=== PATIENT | female | born 1960 | race Caucasian/White ===

== ENCOUNTER 2016-03-12 17:54 | Emergency (ER) | payer MEDICAID ==
[~2016-03-12] VITALS: Ht 149.9 cm; Wt 68.0 kg
[2016-03-12 18:36] VITALS: BP 117/84
[2016-03-12] MEDS ORDERED: diphenhdrAMINE HCL 50 MG/1 ML VL IM ONE (19:00)
[2016-03-12] MEDS ORDERED: EPINEPHrine HCL 1 MG/1 ML AMP SC ONE (19:00)
== END 2016-03-12 20:05 | disposition home or self-care (01) ==
LOC: ER 18:07
DX: T78.40XA Allergy, unspecified, initial encounter (principal); H66.91 Otitis media, unspecified, right ear; I10 Essential (primary) hypertension; F17.210 Nicotine dependence, cigarettes, uncomplicated; Z88.1 Allergy status to other antibiotic agents
CPT/HCPCS: 96372; 99284; J0171; J1200

== ENCOUNTER 2016-05-15 08:38 | Emergency (ER) | payer MEDICAID ==
[~2016-05-15] VITALS: Ht 149.9 cm; Wt 70.3 kg
[2016-05-15 08:52] VITALS: BP 120/72
== END 2016-05-15 11:36 | disposition home or self-care (01) ==
LOC: ER 08:40
DX: J20.9 Acute bronchitis, unspecified (principal); F17.210 Nicotine dependence, cigarettes, uncomplicated
CPT/HCPCS: 71020

== ENCOUNTER 2016-06-08 20:00 | Emergency (ER) | payer MEDICAID ==
[~2016-06-08] VITALS: Ht 149.9 cm; Wt 70.3 kg
[2016-06-08 23:26] VITALS: BP 126/69
[2016-06-09] MEDS ORDERED: ALBUTEROL SULF 2.5 MG/0.5ML(0.5%) NEB SOLN NEB ONE (00:45)
[2016-06-09] MEDS ORDERED: IPRATROPIUM BROM 0.5 MG/2.5ML INH SOL NEB ONE (00:45)
[2016-06-09] MEDS ORDERED: methylPREDNISolone SOD SUCC 125 MG/2 ML VL IM ONE (00:45)
== END 2016-06-09 01:01 | disposition home or self-care (01) ==
LOC: ER 20:08
DX: J42 Unspecified chronic bronchitis (principal); I10 Essential (primary) hypertension; F17.210 Nicotine dependence, cigarettes, uncomplicated
CPT/HCPCS: 71010; 94640; 96372; 99283; J2930

== ENCOUNTER 2018-03-02 16:10 | Emergency (ER) | payer MEDICAID ==
[~2018-03-02] VITALS: Ht 149.9 cm; Wt 69.4 kg
[2018-03-02 16:41] VITALS: BP 138/81
[2018-03-02] MEDS ORDERED: cefTRIAXone SOD 1,000 MG VL IM ONE (18:45)
[2018-03-02] MEDS ORDERED: methylPREDNISolone SOD SUCC 125 MG/2 ML VL IM ONE (18:45)
[2018-03-02] MEDS ORDERED: ALBUTEROL SULF 2.5 MG/0.5ML(0.5%) NEB SOLN NEB ONE (19:00)
[2018-03-02] MEDS ORDERED: IPRATROPIUM BROM 0.5 MG/2.5ML INH SOL NEB ONE (19:00)
== END 2018-03-02 19:45 | disposition home or self-care (01) ==
LOC: ER 16:14
DX: J42 Unspecified chronic bronchitis (principal); I10 Essential (primary) hypertension; F17.210 Nicotine dependence, cigarettes, uncomplicated
CPT/HCPCS: 94640; 96372; 99283; J0696; J2930; J7611; J7644

== ENCOUNTER 2018-05-01 11:52 | Emergency (ER) | payer MEDICAID ==
[~2018-05-01] VITALS: Ht 149.9 cm; Wt 52.2 kg
[2018-05-01 12:23] VITALS: BP 147/93
== END 2018-05-01 14:27 | disposition home or self-care (01) ==
LOC: ER 11:54
DX: I10 Essential (primary) hypertension (principal); F17.210 Nicotine dependence, cigarettes, uncomplicated; Z88.5 Allergy status to narcotic agent; Z88.1 Allergy status to other antibiotic agents; Z76.0 Encounter for issue of repeat prescription

== ENCOUNTER 2019-04-15 08:23 | Inpatient (IN) | payer MEDICAID ==
[~2019-04-15] VITALS: Ht 149.9 cm; Wt 73.4 kg
[2019-04-15] MEDS ORDERED: SODIUM CHLORIDE 0.9% 1,000 ML IV ONE (08:46)
[2019-04-15] MEDS ORDERED: SODIUM CHLORIDE 0.9% 500 ML IVB ONE (08:46)
[2019-04-15] MEDS ORDERED: PROMETHAZINE HCL 25 MG/ML 1ML IV PRN (09:15)
[2019-04-15] MEDS ORDERED: HYDROmorphone HCL 2 MG/ML VL IV ONE (09:15)
[2019-04-15 09:25] LABS: Basophils # (auto) 0.1 uL; Basophils % (auto) 0.3 % (0.0-2.0); Eosinophils # (auto) 0 uL; Eosinophils % (auto) 0.2 % (0.0-7.0); Hematocrit 46.9 % (36.0-46.0); Hemoglobin 16.2 g/dL (12.2-16.2); Lymphocytes # (auto) 2.2 uL; Lymphocytes % (auto) 10.8 % (10.0-50.0); Mean Corpuscular Hemoglobin 30.8 pg (28.0-32.0); Mean Corpuscular Hgb Conc. 34.5 g/dL (32.0-36.0); Mean Corpuscular Volume 89.3 fL (80.0-100.0); Monocytes # (auto) 0.8 uL; Monocytes % (auto) 3.9 % (0.0-12.0); Neutrophils # (auto) 17.4 uL; Neutrophils % (auto) 84.8 % (37.0-80.0); Nucleated Red Blood Cells % 0.2 %; Platelet Count (auto) 331 10^3/uL (140-450); Red Blood Cells 5.25 10^6/uL (4.0-5.20); Red Cell Distribution Width 13.3 % (11.8-14.3); White Blood Cell 20.5 10^3/uL (4.4-10.8)
[2019-04-15 09:36] LABS: Albumin 3.8 g/dL (3.4-5.0); Potassium 3.1 mmol/L (3.5-5.1)
[2019-04-15 09:39] LABS: Bilirubin, Total 0.8 mg/dL (0.2-1.0); Total Protein 7.5 g/dL (6.4-8.2)
[2019-04-15 10:12] LABS: Magnesium 2.2 mg/dL (1.6-2.6)
[2019-04-15] MEDS ORDERED: POTASSIUM EFFERVESENT TAB 25 MEQ PO ONE (11:00)
[2019-04-15 12:15] LABS: Urine Bacteria MOD /hpf (None Seen); Urine Blood Negative /uL (Negative); Urine Mucus FEW (None Seen); Urine Specific Gravity 1.028 (1.001-1.035); Urine WBC 4 /hpf (0 - 5)
[2019-04-15] MEDS ORDERED: cefTRIAXone 1GM/50ML D5W 50 ML IV ONE ×2 (12:30→13:30)
[2019-04-15] MEDS: SODIUM CHLORIDE 0.9% 1,000 ML IV SCH ×2 (13:20→23:20)
[2019-04-15] MEDS ORDERED: traMADol HCL 50 MG TAB PO PRN (13:30)
[2019-04-15] MEDS ORDERED: MORPHINE SULF INJ 2 MG/ML SYRINGE 1ML IV PRN (13:30)
[2019-04-15] MEDS ORDERED: ALBUTEROL SULF 2.5 MG/0.5ML(0.5%) NEB SOLN NEB PRN (13:30)
[2019-04-15] MEDS ORDERED: DEXTROSE (50%) 50ML SYRG IV PRN (13:30)
[2019-04-15] MEDS ORDERED: ACETAMINOPHEN 500 MG TAB PO PRN (13:30)
[2019-04-15] MEDS: PROMETHAZINE HCL 25 MG/ML 1ML IV PRN ×2 (13:47→20:05)
[2019-04-15 13:58] VITALS: BP 110/86
[2019-04-15] MEDS: metroNIDAZOLE 500MG/100ML 100 ML IV SCH ×2 (14:01→21:32)
[2019-04-15 14:04] LABS: CRP High Sensitivity 0.33 mg/dL (< 0.3)
[2019-04-15] MEDS ORDERED: IOHEXOL 300 MG/ML 100ML BOTTLE IJ ONE (14:24)
--- NOTE | 2019-04-15 15:40 | NUR ---
MS admit from ER GEORGE NEWBY admitted to tele/MS after SBAR received. Patient oriented to AVINASH PAULA, RN primary RN, unit, room, bed, and unit policies regarding patient care and visiting hours. Patient weighed by bedscale and encouraged to call if they need something. All questions and concerns addressed, patient verbalized understanding.
[2019-04-15] MEDS ORDERED: PREN-96 PO (16:11)
[2019-04-15] MEDS: ACCU-CHEK COMFORT CURVE STRIP VI SCH ×2 (16:27→22:00)
[2019-04-15 17:02] VITALS: BP 126/88
--- NOTE | 2019-04-15 19:07 | NUR ---
Closing Shift Note Patient resting in bed with eyes closed. No distress noted. Report given. Will endorse care to the police shift commander RN.
[2019-04-15] MEDS: FAMOTIDINE 20 MG TAB PO SCH (20:06)
--- NOTE | 2019-04-15 20:45 | NUR ---
PT HAD LARGE FORMED STOOL IN BEDSIDE COMMODE. BACK IN BED. INFORMED RN THAT SHE DOES NOT HAVE "SUGAR DIABETES" AND DOES NOT WANT HER FINGERS POKED ANYMORE.
[2019-04-15 22:45] VITALS: BP 144/90
[2019-04-16] MEDS: metroNIDAZOLE 500MG/100ML 100 ML IV SCH ×3 (05:48→22:20)
[2019-04-16 06:12] VITALS: BP 112/76
[2019-04-16 06:39] LABS: Basophils # (auto) 0.1 uL; Basophils % (auto) 0.5 % (0.0-2.0); Eosinophils # (auto) 0.1 uL; Eosinophils % (auto) 1.2 % (0.0-7.0); Hematocrit 41.1 % (36.0-46.0); Hemoglobin 14.5 g/dL (12.2-16.2); Lymphocytes # (auto) 2.1 uL; Lymphocytes % (auto) 18.8 % (10.0-50.0); Mean Corpuscular Hemoglobin 31.5 pg (28.0-32.0); Mean Corpuscular Hgb Conc. 35.2 g/dL (32.0-36.0); Mean Corpuscular Volume 89.6 fL (80.0-100.0); Monocytes # (auto) 0.6 uL; Monocytes % (auto) 5.6 % (0.0-12.0); Neutrophils # (auto) 8.1 uL; Neutrophils % (auto) 73.9 % (37.0-80.0); Nucleated Red Blood Cells % 0.1 %; Platelet Count (auto) 216 10^3/uL (140-450); Red Blood Cells 4.59 10^6/uL (4.0-5.20); Red Cell Distribution Width 13.1 % (11.8-14.3)
--- NOTE | 2019-04-16 06:43 | NUR ---
Respiratory note: ASSESSED PT FOR PRN MED NEB AT THIS TIME, PT SLEEPING AT THIS TIME, NO RESP DISTRESS NOTED, NO TX INDICATED. PULSE OX 93% ON RA, HR 83, RR 18, BILATERAL BS CLEAR.
[2019-04-16] MEDS: ACCU-CHEK COMFORT CURVE STRIP VI SCH ×4 (06:44→22:00)
[2019-04-16 06:54] LABS: Potassium 3.1 mmol/L (3.5-5.1)
[2019-04-16 07:03] LABS: Albumin 3.1 g/dL (3.4-5.0); BUN/Creatinine Ratio 15.3; Bilirubin, Total 1.1 mg/dL (0.2-1.0); Calcium 8.3 mg/dL (8.5-10.1); Total Protein 6.3 g/dL (6.4-8.2)
[2019-04-16 08:00] VITALS: BP 113/76
[2019-04-16 09:00] VITALS: BP 113/76
[2019-04-16] MEDS: FAMOTIDINE 20 MG TAB PO SCH ×2 (09:47→22:20)
[2019-04-16] MEDS: SODIUM CHLORIDE 0.9% 1,000 ML IV SCH ×2 (09:47→19:20)
[2019-04-16] MEDS: cefTRIAXone 1GM/50ML D5W 50 ML IV SCH (09:47)
[2019-04-16] MEDS ORDERED: GOLYTELY 4L KIT PO ONE (11:15)
[2019-04-16 13:00] VITALS: BP 114/82
[2019-04-16] MEDS ORDERED: POTASSIUM EFFERVESENT TAB 25 MEQ PO ONE (14:45)
[2019-04-16 17:00] VITALS: BP 152/98
[2019-04-16 19:14] LABS: Hematocrit 41.3 % (36.0-46.0); Hemoglobin 14.1 g/dL (12.2-16.2)
[2019-04-16 19:21] LABS: INR 1.05 (0.9-1.15)
--- NOTE | 2019-04-16 19:40 | NUR ---
Patient stated that she does not want to be hooked up to fluids because its a hassle to constantly get up and wheel the pole around due to her on the go lightly for her colonoscopy tomorrow. I educated her that it's important to have the fluids since she is using the restroom so often. Patient still declined to be on fluids.
--- NOTE | 2019-04-16 20:00 | NUR ---
PT ASSESSED, PRN TX NOT INDICATED AT THIS TIME. NO SOB, BS CLEAR BILATERALLY
[2019-04-16] MEDS ORDERED: TEMAZEPAM 15 MG CAP PO PRN (21:45)
[2019-04-16 22:00] VITALS: BP 120/78
--- NOTE | 2019-04-16 22:17 | NUR ---
Patient has between 15-20% left of Golyte but refuses to drink anymore stating that all it does is make me go to the bathroom. I explained to her the reasoning for the Golyte to make sure her insides are "clean" so that they can visualize when they go in. She still insisted on not drinking anymore.
[2019-04-17 05:00] VITALS: BP_SYST 129; BP_SYST 150; BP_DIAS 73; BP_DIAS 85
[2019-04-17] MEDS: metroNIDAZOLE 500MG/100ML 100 ML IV SCH (06:25)
[2019-04-17] MEDS: ACCU-CHEK COMFORT CURVE STRIP VI SCH (06:25)
--- NOTE | 2019-04-17 06:56 | NUR ---
Respiratory note: PRN MED NEB TX NOT INDICATED . HR 82, RR 16, SPO2 99% ON RA, BS CLEAR. PT INFORMED TO HIT CALL BUTTON IF FEELING SOB OR WHEEZING.
--- NOTE | 2019-04-17 08:00 | NUR ---
Morning note patient sitting at bedside with both feet on floor. Respirations even and unlabored, no distress noted. Instructed patient on POC, fall precautions and to call for assistance as needed. patient verbalized understanding. Patient stated "I want to go. I don't want to go through with the test. I'm scared. I don't want to find out what's going on. My mom had these same symptoms and she of anal cancer." Allowed patient time to express her feelings. Education provided to the patient along. Patient verbalized understanding. Patient stated "Okay, I will stay." Instructed patient on calming breathing technique. Patient returned demonstration. Golytely not finished at bedside. Patient stated "I can't drink any more of that." Education provided on procedure. Patient verbalized understanding. MD to be notified. Call right within reach.
--- NOTE | 2019-04-17 08:07 | NUR ---
Paged RE: patient's BM & potassium level Patient has not completed Golytely. Patient's BM are brown to green in color, liquid with some formed pieces noted. Paged Dr. Valdez to notify.
--- NOTE | 2019-04-17 08:44 | NUR ---
Updated Dr. Valdez RE: BM & potassium level Orders received and read back to verify. Hospitalist to order supplemental potassium replacement.
[2019-04-17 09:00] VITALS: BP 117/82
[2019-04-17] MEDS: cefTRIAXone 1GM/50ML D5W 50 ML IV SCH (10:27)
[2019-04-17] MEDS: FAMOTIDINE 20 MG TAB PO SCH (10:27)
--- NOTE | 2019-04-17 10:48 | NUR ---
Patient left AMA Patient stated "I don't want to stay here. I want to go home and see my cats. I don't want to know what's going on inside. My mom of anal cancer and she had these same symptoms. I don't want to know what is going on." Advised patient against leaving AMA, including the risks of leaving without being seen by an MD. Patient verbalized understanding. Patient is A&Ox4. Respirations even and unlabored, no distress noted. Patient's roommate is at bedside to transport patient home.
--- NOTE | 2019-04-17 11:16 | NUR ---
Michelle CHRISTENSEN to notify of AMA Paged Dr. Pierson.
--- NOTE | 2019-04-17 12:40 | NUR ---
Verbally notified Dr. Pierson at nursing station that patient left ALISSON CHRISTENSEN verbalized understanding.
== END 2019-04-17 10:47 | disposition left against medical advice (07) | DRG 253 ==
LOC: ER 08:23 → OVERFLOW 08:24 → WEST WING 15:34
PROVIDERS: ADMIT Internal Medicine; ATTEND Internal Medicine
DX: K62.5 Hemorrhage of anus and rectum (principal); N17.0 Acute kidney failure with tubular necrosis; E66.9 Obesity, unspecified; N20.0 Calculus of kidney; E87.6 Hypokalemia; N39.0 Urinary tract infection, site not specified; N18.9 Chronic kidney disease, unspecified; I12.9 Hypertensive chronic kidney disease with stage 1 through stage 4 chronic kidney disease, or unspecified chronic kidney disease; J98.11 Atelectasis; J44.9 Chronic obstructive pulmonary disease, unspecified; R73.9 Hyperglycemia, unspecified; I70.90 Unspecified atherosclerosis; K57.30 Diverticulosis of large intestine without perforation or abscess without bleeding; G89.29 Other chronic pain; F17.210 Nicotine dependence, cigarettes, uncomplicated; Z88.5 Allergy status to narcotic agent; Z88.8 Allergy status to other drugs, medicaments and biological substances; Z80.0 Family history of malignant neoplasm of digestive organs; Z68.32 Body mass index [BMI] 32.0-32.9, adult
CPT/HCPCS: 36415; 71046; 74176; 74177; 80053; 81001; 82150; 82962; 83036; 83690; 83735; 84443; 85014; 85018; 85025; 85610; 85652; 86141; 87040; 87086; 87088; 87186; 93005; 96361; 96365; 96375; G0378; J0696; J3490

== ENCOUNTER 2019-10-22 11:37 | Inpatient (IN) | payer MEDICAID ==
[~2019-10-22] VITALS: Ht 149.9 cm; Wt 75.2 kg
[~2019-10-22 11:37] MED LIST: PREN-96 PO
[2019-10-22] MEDS ORDERED: SODIUM CHLORIDE 0.9% 1,000 ML IVB ONE (12:02)
[2019-10-22] MEDS ORDERED: MORPHINE SULF INJ 2 MG/ML SYRINGE 1ML IV ONE (12:30)
[2019-10-22] MEDS ORDERED: ONDANSETRON HCL 4 MG/2 ML VIAL IV ONE (12:30)
[2019-10-22 12:53] LABS: Basophils # (auto) 0.1 10 ^3/uL (0-0.2); Basophils % (auto) 0.5 % (0.0-2.0); Eosinophils # (auto) 0.2 10 ^3/uL (0-0.8); Eosinophils % (auto) 1.5 % (0.0-7.0); Hematocrit 44.4 % (36.0-46.0); Lymphocytes # (auto) 2.3 10 ^3/uL (0.4-5.4); Mean Corpuscular Hemoglobin 30.5 pg (28.0-32.0); Mean Corpuscular Hgb Conc. 33.7 g/dL (32.0-36.0); Mean Corpuscular Volume 90.5 fL (80.0-100.0); Monocytes % (auto) 6.1 % (0.0-12.0); Neutrophils # (auto) 12.7 10 ^3/uL (1.6-8.6); Neutrophils % (auto) 77.9 % (37.0-80.0); Platelet Count (auto) 289 10^3/uL (140-450); Red Blood Cells 4.91 10^6/uL (4.0-5.20); Red Cell Distribution Width 13.4 % (11.8-14.3); White Blood Cell 16.3 10^3/uL (4.4-10.8)
[2019-10-22 13:10] LABS: Albumin 3.5 g/dL (3.4-5.0); Calcium 8.5 mg/dL (8.5-10.1); INR 0.99 (0.9-1.15); Partial Thromboplastin Time 27.2 sec (23.0-31.2)
[2019-10-22 13:16] LABS: Bilirubin, Total 1.1 mg/dL (0.2-1.0); Total Protein 6.8 g/dL (6.4-8.2)
[2019-10-22] MEDS ORDERED: SODIUM CHLORIDE 0.9% 1,000 ML IV SCH (13:22)
[2019-10-22 13:25] LABS: Potassium 2.5 mmol/L (3.5-5.1)
[2019-10-22] MEDS ORDERED: NITROGLYCERIN 0.4 MG SL TAB SL PRN (13:30)
[2019-10-22] MEDS ORDERED: MORPHINE SULF INJ 2 MG/ML SYRINGE 1ML IV PRN ×2 (13:30)
[2019-10-22] MEDS ORDERED: HYDROcodone-ACET 5/325MG TAB PO PRN (13:30)
[2019-10-22] MEDS ORDERED: LACTATED RINGER'S 1,000 ML IV ONE (13:30)
[2019-10-22] MEDS ORDERED: DOCUSATE SOD 100 MG CAP PO PRN (13:30)
[2019-10-22] MEDS ORDERED: POTASSIUM CHL 20 Meq TABLET PO ONE ×2 (13:30→16:15)
[2019-10-22] MEDS ORDERED: ONDANSETRON HCL 4 MG/2 ML VIAL IV PRN (13:30)
[2019-10-22] MEDS ORDERED: SOD CHL 0.9%/ KCL 20MEQ 1,000 ML IV SCH (13:30)
[2019-10-22] MEDS ORDERED: metroNIDAZOLE 500MG/100ML 100 ML IV ONE ×2 (13:30→13:45)
[2019-10-22] MEDS ORDERED: ACETAMINOPHEN 325 MG TAB PO PRN (13:30)
[2019-10-22] MEDS ORDERED: cefTRIAXone 1GM/50ML D5W 50 ML IV ONE ×2 (13:30→13:45)
[2019-10-22] MEDS ORDERED: POTASSIUM CHL 20MEQ/100ML 100 ML IV SCH (13:45)
[2019-10-22 14:02] LABS: Cholesterol 192 mg/dL (< 200); HDL Cholesterol 48 mg/dL (40-59); LDL Cholesterol 133 mg/dL (< 100); Triglycerides 119 mg/dL (< 150)
[2019-10-22] MEDS: POTASSIUM CHL 20MEQ/100ML 100 ML IV SCH ×2 (15:00→15:24)
[2019-10-22 16:59] VITALS: BP 97/60
--- NOTE | 2019-10-22 19:00 | NUR ---
Opening Shift Note Assumed care of patient, awake and alert. No S/S of distress/SOB or pain. Instructed on POC and to call for assist PRN, will continue to monitor for changes Q1hr and PRN.
[2019-10-22] MEDS: LORazepam 0.5 MG TAB PO PRN (20:13)
[2019-10-22] MEDS: FAMOTIDINE (10MG/ML) 2ML VL IV SCH (21:55)
[2019-10-22] MEDS: metroNIDAZOLE 500MG/100ML 100 ML IV SCH (21:55)
[2019-10-22 22:00] VITALS: BP 92/70
[2019-10-22] MEDS ORDERED: ATORVASTATIN 20 MG TAB PO SCH (22:00)
[2019-10-23 05:00] VITALS: BP 96/65
[2019-10-23] MEDS: metroNIDAZOLE 500MG/100ML 100 ML IV SCH ×3 (06:16→22:15)
[2019-10-23 06:27] LABS: Albumin 3.1 g/dL (3.4-5.0); BUN/Creatinine Ratio 16.3; Bilirubin, Total 1.3 mg/dL (0.2-1.0); Calcium 8.1 mg/dL (8.5-10.1); Total Protein 6.3 g/dL (6.4-8.2)
--- NOTE | 2019-10-23 07:08 | NUR ---
Pt reports she had another bloody stool. I advised her to call before flashing.
--- NOTE | 2019-10-23 07:30 | NUR ---
Opening Shift Note Assumed care of patient, awake and alert. No S/S of distress/SOB or pain. Instructed on POC and to call for assist PRN, will continue to monitor for changes Q1hr and PRN. Fall precautions in place per safety protocol.
[2019-10-23 09:25] VITALS: BP 96/66
[2019-10-23] MEDS: POTASSIUM CHL 20 Meq TABLET PO SCH (09:38)
[2019-10-23] MEDS: cefTRIAXone 1GM/50ML D5W 50 ML IV SCH (09:38)
[2019-10-23] MEDS: FAMOTIDINE (10MG/ML) 2ML VL IV SCH ×2 (09:38→22:14)
[2019-10-23] MEDS: ENOXAPARIN SOD 40 MG/0.4 ML SYRINGE SC SCH (09:39)
[2019-10-23] MEDS ORDERED: ALBUTEROL SULF 2.5 MG/0.5ML(0.5%) NEB SOLN NEB PRN (11:30)
[2019-10-23] MEDS: SODIUM CHLORIDE 0.9% 1,000 ML IV SCH ×2 (11:30→21:30)
[2019-10-23] MEDS ORDERED: IPRATROPIUM BROM 0.5 MG/2.5ML INH SOL NEB PRN (11:30)
[2019-10-23 11:46] LABS: Basophils # (auto) 0.1 10 ^3/uL (0-0.2); Basophils % (auto) 0.6 % (0.0-2.0); Eosinophils # (auto) 0.3 10 ^3/uL (0-0.8); Eosinophils % (auto) 2.2 % (0.0-7.0); Hematocrit 41.3 % (36.0-46.0); Hemoglobin 14.1 g/dL (12.2-16.2); Lymphocytes # (auto) 1.9 10 ^3/uL (0.4-5.4); Lymphocytes % (auto) 13.5 % (10.0-50.0); Mean Corpuscular Hemoglobin 31.1 pg (28.0-32.0); Mean Corpuscular Volume 91.3 fL (80.0-100.0); Monocytes # (auto) 0.8 10 ^3/uL (0-1.3); Neutrophils # (auto) 10.8 10 ^3/uL (1.6-8.6); Neutrophils % (auto) 77.7 % (37.0-80.0); Platelet Count (auto) 235 10^3/uL (140-450); Red Blood Cells 4.53 10^6/uL (4.0-5.20); White Blood Cell 13.9 10^3/uL (4.4-10.8)
[2019-10-23 13:00] VITALS: BP 91/70
[2019-10-23 13:54] VITALS: BP 96/66
[2019-10-23 16:25] VITALS: BP 96/70
[2019-10-23] MEDS: ALUM & MAG HYDROX-SIMETH LIQ(MAALOX) 30 ML PO PRN ×2 (17:46→21:12)
--- NOTE | 2019-10-23 19:10 | NUR ---
Respiratory note: PT ASSESSED FOR PRN MED NEB TX. HR 90, RR 16, SPO2 97% ON RA. NO S/S OF ANY RESPIRATORY DISTRESS NOTED. ADVISED PT TO CALL IF TX IS NEEDED.
[2019-10-23 22:03] VITALS: BP 108/65
[2019-10-23] MEDS: TEMAZEPAM 15 MG CAP PO PRN (22:15)
[2019-10-24 02:46] LABS: Urine Bacteria FEW /hpf (None Seen); Urine Blood Negative /uL (Negative); Urine Specific Gravity 1.006 (1.001-1.035); Urine WBC 1 /hpf (0 - 5)
[2019-10-24 02:54] LABS: Alcohol, Urine < 3.0 mg/dL (0-10); Amphetamine Screen, Urine POSITIVE (NEGATIVE); Barbiturate Scree,Urine NEGATIVE (NEGATIVE); Benzodiazephine Screen, Urine NEGATIVE (NEGATIVE); Cannabinoid Screen, Urine POSITIVE (NEGATIVE); Cocaine Screen, Urine NEGATIVE (NEGATIVE); Opiate Scree,Urine NEGATIVE (NEGATIVE); Phencyclidine Screen, Urine NEGATIVE (NEGATIVE)
[2019-10-24] MEDS: LORazepam 0.5 MG TAB PO PRN (03:00)
[2019-10-24 05:22] VITALS: BP 129/102
[2019-10-24] MEDS: metroNIDAZOLE 500MG/100ML 100 ML IV SCH ×3 (05:52→22:24)
--- NOTE | 2019-10-24 05:55 | NUR ---
PRN [place] TX NOT INDICATED AT THIS TIME. PT DENIES SOB OR ANY OTHER RESPIRATORY DISTRESS. PT ON RA. 95% O2 SATS, HR 83 BPM, RR18 BPM, BS ARE CLEAR TO AUSCULTATION. RESPIRATION IS EVEN AND NON LABORED. WILL CONTINUE TO MONITOR PT.
[2019-10-24 06:42] LABS: Basophils # (auto) 0.1 10 ^3/uL (0-0.2); Basophils % (auto) 0.9 % (0.0-2.0); Eosinophils # (auto) 0.3 10 ^3/uL (0-0.8); Eosinophils % (auto) 3.3 % (0.0-7.0); Hematocrit 37.1 % (36.0-46.0); Hemoglobin 12.7 g/dL (12.2-16.2); Lymphocytes # (auto) 1.5 10 ^3/uL (0.4-5.4); Lymphocytes % (auto) 17.2 % (10.0-50.0); Mean Corpuscular Hemoglobin 31.3 pg (28.0-32.0); Mean Corpuscular Hgb Conc. 34.4 g/dL (32.0-36.0); Mean Corpuscular Volume 91.2 fL (80.0-100.0); Monocytes # (auto) 0.6 10 ^3/uL (0-1.3); Monocytes % (auto) 6.6 % (0.0-12.0); Neutrophils # (auto) 6.2 10 ^3/uL (1.6-8.6); Platelet Count (auto) 218 10^3/uL (140-450); Red Blood Cells 4.07 10^6/uL (4.0-5.20); Red Cell Distribution Width 13.1 % (11.8-14.3); White Blood Cell 8.6 10^3/uL (4.4-10.8)
[2019-10-24 06:47] LABS: Albumin 2.9 g/dL (3.4-5.0); Calcium 7.7 mg/dL (8.5-10.1); Magnesium 2.2 mg/dL (1.6-2.6)
[2019-10-24 06:52] LABS: Bilirubin, Total 0.6 mg/dL (0.2-1.0); Total Protein 5.8 g/dL (6.4-8.2)
--- NOTE | 2019-10-24 07:33 | NUR ---
Opening Shift Note Assumed care of patient from noc shift rn, awake and alert. No S/S of distress/SOB or pain. Instructed on POC and to call for assist PRN, will continue to monitor for changes Q1hr and PRN. Fall precautions in place per safety protocol.
[2019-10-24] MEDS: SODIUM CHLORIDE 0.9% 1,000 ML IV SCH ×2 (07:49→18:27)
[2019-10-24 08:00] VITALS: BP 107/76
[2019-10-24] MEDS: cefTRIAXone 1GM/50ML D5W 50 ML IV SCH (08:51)
[2019-10-24 09:00] VITALS: BP 107/76
[2019-10-24] MEDS: POTASSIUM CHL 20 Meq TABLET PO SCH (10:12)
[2019-10-24] MEDS: FAMOTIDINE (10MG/ML) 2ML VL IV SCH ×2 (10:13→22:24)
[2019-10-24] MEDS: ENOXAPARIN SOD 40 MG/0.4 ML SYRINGE SC SCH (10:13)
[2019-10-24] MEDS ORDERED: POTASSIUM CHL 20MEQ/100ML 100 ML IV ONE (10:45)
[2019-10-24] MEDS ORDERED: KETOROLAC TROMETH 30 MG/ML 1ML VIAL IV PRN (11:00)
--- NOTE | 2019-10-24 12:51 | NUR ---
Nutrition Assessment Notes please see attached link for complete assessment Est energy needs ABW 59 [id number] kcal (23-25 kcal/kg ABW), Est protein needs: 59-64 g (1-1.1g/kg ABW). Will reassess prn. Addendum: 10/24/19 at [address] Amended: Links added.
[2019-10-24 13:00] VITALS: BP 126/86
[2019-10-24] MEDS ORDERED: IOHEXOL 300 MG/ML 100ML BOTTLE IJ ONE (16:09)
--- NOTE | 2019-10-24 16:38 | NUR ---
patient off unit for CT will resume IV medication upon return to unit.
[2019-10-24 17:08] VITALS: BP 125/89
--- NOTE | 2019-10-24 18:01 | NUR ---
Patient is complaining about having to eat clear liquid diet. Demanding to eat regular diet. Education provided on maintaining clear liquid diet per MD's order.
--- NOTE | 2019-10-24 18:16 | NUR ---
Respiratory note: PT RECIEVED ON RA. PT IS AWAKE AND ALERT AT THIS TIME. NO RESP DISTRESS NOTED. PRN TX NOT INDICATED. SPO2 96%, HR 94, RR 20. BS CLEAR/DIMINISHED T/O.
[2019-10-24 22:00] VITALS: BP 125/84
[2019-10-24] MEDS: TEMAZEPAM 15 MG CAP PO PRN (22:25)
[2019-10-25] MEDS: SODIUM CHLORIDE 0.9% 1,000 ML IV SCH (03:30)
[2019-10-25] MEDS: LORazepam 0.5 MG TAB PO PRN (04:27)
[2019-10-25 05:25] VITALS: BP 129/82
[2019-10-25 05:52] LABS: Hematocrit 36.9 % (36.0-46.0); Hemoglobin 12.8 g/dL (12.2-16.2)
[2019-10-25] MEDS: metroNIDAZOLE 500MG/100ML 100 ML IV SCH (06:23)
--- NOTE | 2019-10-25 07:42 | NUR ---
Opening Shift Note Assumed care of patient from noc shift rn, awake. alert and oriented x4, appears restless ad demanding to leave AMA. Denies pain at this time. Instructed on POC and to call for assist PRN, will continue to monitor for changes Q1hr and PRN.
[2019-10-25 08:00] VITALS: BP 150/88
[2019-10-25 08:30] VITALS: BP 150/88
--- NOTE | 2019-10-25 08:50 | NUR ---
PATIENT LEFT AMA AND REFUSED TO SIGN FORM. ALERT AND ORIENTED AT THIS TIME, REPORTS HAVING FAMILY PROBLEMS AND WANTS TO GO HOME, DESPITE ADVICE TO STAY UNTIL SHE HAD SEEN THE DOCTOR. IV DISCONTINUED AND TELE MONITOR RETURNED TO ICU.
[2019-10-26 09:19] LABS: Hepatitis B Surface Antibody Negative
[2019-10-26 09:50] LABS: Hepatitis A Total Antibody Negative
[2019-10-26 10:09] LABS: Hepatitis B Core Total AB Negative; Hepatitis B Surface Antigen Negative (Negative); Hepatitis C Antibody Negative (Negative)
== END 2019-10-25 08:50 | disposition left against medical advice (07) | DRG 720 ==
LOC: EDBD 11:37 → ER 11:37 → TELE-CENTR 11:38
PROVIDERS: ADMIT Hospitalist; ATTEND Internal Medicine
DX: A41.9 Sepsis, unspecified organism (principal); K92.1 Melena; E66.01 Morbid (severe) obesity due to excess calories; E87.6 Hypokalemia; K52.9 Noninfective gastroenteritis and colitis, unspecified; N39.0 Urinary tract infection, site not specified; J44.9 Chronic obstructive pulmonary disease, unspecified; F15.10 Other stimulant abuse, uncomplicated; K57.32 Diverticulitis of large intestine without perforation or abscess without bleeding; E78.5 Hyperlipidemia, unspecified; F12.90 Cannabis use, unspecified, uncomplicated; F17.210 Nicotine dependence, cigarettes, uncomplicated; G89.29 Other chronic pain; M47.896 Other spondylosis, lumbar region; Z53.29 Procedure and treatment not carried out because of patient's decision for other reasons; I10 Essential (primary) hypertension; K76.0 Fatty (change of) liver, not elsewhere classified; N20.2 Calculus of kidney with calculus of ureter; K82.8 Other specified diseases of gallbladder; Z80.0 Family history of malignant neoplasm of digestive organs; Z82.49 Family history of ischemic heart disease and other diseases of the circulatory system; Z98.1 Arthrodesis status; Z68.33 Body mass index [BMI] 33.0-33.9, adult; Z88.6 Allergy status to analgesic agent; Z88.1 Allergy status to other antibiotic agents; Z88.8 Allergy status to other drugs, medicaments and biological substances
CPT/HCPCS: 36415; 71045; 74176; 74178; 80053; 80061; 80307; 81001; 83036; 83605; 83735; 84132; 84484; 85014; 85018; 85025; 85610; 85730; 86704; 86706; 86708; 86803; 86850; 86900; 86901; 87040; 87086; 87340; 93306; G0378; J0696; J1885; J2405; J3480; J3490